=== PATIENT | male | born 1995 | race Caucasian/White ===

== ENCOUNTER 2021-01-10 17:10 | Emergency (ER) | payer OTHER ==
[2021-01-10 17:15] VITALS: BP 137/96; PULSE 87; TEMP 99; BMI 25.8
[2021-01-10] MEDS ORDERED: DIPHTH,PERTUSS(ACELL),TET 0.5 ML DISP.SYRIN IM ONE ×2 (18:19→18:24)
== END 2021-01-10 19:52 | disposition home or self-care (01) ==
LOC: FER 17:10
PROC: 0HQFXZZ Repair Right Hand Skin, External Approach (ICD-10-PCS; principal; 2021-01-10)
PROC: 3E0234Z Introduction of Serum, Toxoid and Vaccine into Muscle, Percutaneous Approach (ICD-10-PCS; principal; 2021-01-10)
DX: S61.441A Puncture wound with foreign body of right hand, initial encounter (principal); W45.8XXA Other foreign body or object entering through skin, initial encounter
CPT/HCPCS: 73130-TC-RT-FY; 90715; 99283-25

== ENCOUNTER 2021-01-21 13:27 | Emergency (ER) | payer OTHER ==
[2021-01-21 13:57] VITALS: BP 130/80; BMI 25.8
== END 2021-01-21 14:14 | disposition home or self-care (01) ==
LOC: FER 13:27
DX: S61.412A Laceration without foreign body of left hand, initial encounter (principal); Z48.02 Encounter for removal of sutures
CPT/HCPCS: 99281-25